=== PATIENT | female | born 1985 | race Caucasian/White ===

== ENCOUNTER 2019-01-10 06:13 | Day surgery (SDC) | payer BC ==
--- NOTE | 2019-01-05 16:23 | HP ---
PREOPERATIVE HISTORY AND PHYSICAL: DATE OF ADMISSION/SURGERY: 01/10/[address] [facility] DATE OF OFFICE VISIT: 01/04/19 ATTENDING SURGEON: Dr. Kailey Calixto.* (DICTATED BY DAVID LANGSTON) PROCEDURE: Right shoulder arthroscopic decompression, debridement, excision of distal clavicle, and possible subpectoral biceps tenodesis. CHIEF COMPLAINT: Right shoulder pain. HISTORY OF PRESENT ILLNESS: Anna is a 33-year-old female, who presents to the clinic for right shoulder pain due to AC joint arthritis and biceps tendinitis. She has failed conservative measures and therefore agreed to undergo a right shoulder arthroscopic decompression, debridement, excision of distal clavicle, and possible subpectoral biceps tenodesis with Dr. Calixto on . PAST MEDICAL HISTORY: Anxiety. PAST SURGICAL HISTORY: Denies prior surgeries. MEDICATIONS: Lorazepam 2 mg/mL, 0.5 every 6 hours as needed. ALLERGIES: BACTRIM. FAMILY HISTORY: Denies pertinent family history. Denies family history of DVT or PE. SOCIAL HISTORY: She lives with her spouse. She denies smoking. She reports occasional alcohol consumption. She is right-hand dominant. REVIEW OF SYSTEMS: A 14-point review of systems was reviewed with the patient. Positive for current complaint, otherwise negative. Denies fever, chills, chest pain, shortness of breath, history of bleeding disorder, history of DVT or PE. PHYSICAL EXAMINATION GENERAL: A 33-year-old, well-developed, well-nourished female, in no acute distress. VITAL SIGNS: Height 65, weight 161, blood pressure 122/72, respiratory rate 18 , BMI 26.8. HEENT: Normocephalic, atraumatic. PERRLA. Throat clear. NECK: Supple. PULMONARY: Lungs are clear to auscultation bilaterally. No wheezing, rhonchi, or rales. CARDIO: Regular rate and rhythm. S1, S2. No murmurs, gallops, or rubs. No edema. ABDOMEN: Positive bowel sounds. Soft, nontender. NEURO: Alert and oriented x3. Cranial nerves grossly intact. MUSCULOSKELETAL: Right upper extremity: Skin is intact. Tenderness over the AC joint. Mildly tender over the bicipital groove. Forward flexion and abduction to 175, external rotation to 80, internal rotation to T8. +5/5 strength to rotator cuff testing with pain. Pain with impingement testing and Speed's and Guilford's. Positive cross-body adduction. +2 radial pulse. Sensation intact to light touch distally. DIAGNOSTIC STUDIES: MRI of the right shoulder revealed fluid in the bicipital groove, superior labral tearing, AC joint arthritis and impingement. IMPRESSION: Right shoulder acromioclavicular joint arthritis, impingement, and biceps tendinitis. PLAN: The patient is scheduled to undergo a right shoulder arthroscopic decompression, debridement, excision of distal clavicle, and possible subpectoral biceps tenodesis with Dr. Calixto on 01/10/19. She will follow up 10 to 14 days postop for followup and suture removal. Toradol and Tylenol will be used for postop pain management. The patient would like to avoid narcotics if possible. DAVID LANGSTON [id number]/[facility] #: [id number] RICK
[~2019-01-10 06:13] MED LIST: Buffered Lidocaine 1% SYRIN* 1 ML/SYRINGE INTRADERM ONE; Dexamethasone IV* 4 MG/ML 1 ML (4 MG) IV SLOW PU ONE; Lactated Ringers 1000 ML Bag* 1,000 ML IV SCH
[2019-01-10] MEDS ORDERED: Dexamethasone IV* 4 MG/ML 1 ML (4 MG) ONE (06:25)
[2019-01-10] MEDS ORDERED: ceFAZolin 2 GM in NS PREMIX(*) 2 GM/100 ML BAG IVPB ONE (06:26)
[2019-01-10] MEDS ORDERED: Bupivacaine 0.25% SDV* 30 ML ONE (07:01)
[2019-01-10] MEDS ORDERED: Propofol* 10 MG/ML 20 ML BTL ONE (07:22)
[2019-01-10] MEDS ORDERED: Midazolam* 1 MG/ML 5 ML VIAL (5 MG) ONE (07:22)
[2019-01-10] MEDS ORDERED: fentaNYL* 50 MCG/ML 2 ML VIAL (100 MCG VIAL) ONE (07:22)
[2019-01-10] MEDS ORDERED: ROPIVACAINE 5 MG/ML 30 ML BTL (0.5%) ONE (07:24)
[2019-01-10] MEDS ORDERED: Lidocaine 1% MPF ** 5 ML VIAL ONE (07:25)
[2019-01-10] MEDS ORDERED: fentaNYL* 50 MCG/ML 2 ML VIAL (100 MCG VIAL) IV PRN (07:31)
[2019-01-10] MEDS ORDERED: DiMENhydriNATE IV* 50 MG/ML VIAL IV PUSH PRN (07:31)
[2019-01-10] MEDS ORDERED: Ketorolac INJ* 30 MG/ML 1 ML VIAL IV PRN (07:31)
[2019-01-10] MEDS ORDERED: Naloxone* 0.4 MG/ML 1 ML VIAL IV PRN (07:31)
[2019-01-10] MEDS ORDERED: Acetaminophen TAB* 325 MG PO PRN (07:31)
[2019-01-10] MEDS ORDERED: oxyCODONE/Acetamin 5/325 MG* TAB PO PRN (07:31)
[2019-01-10] MEDS ORDERED: HYDROmorphone INJ1* 1 MG/ML SYRINGE IV PRN (07:31)
[2019-01-10 10:34] VITALS: BP 117/81
--- NOTE | 2019-01-10 12:27 | OP ---
CC: PCP, Darcy Guerra NP * DATE OF OPERATION: 01/10/19 [facility] DATE OF : 81 SURGEON: Kailey Calixto MD. COMPANY DOCTOR: DAVID Bunch. The logging assistant was needed for the entirety of the case to help with positioning, retraction, and were utilized throughout all portions of the case. ANESTHESIOLOGIST: Dr. Chan. ANESTHESIA: General, interscalene block. PRE-OP DIAGNOSIS: Right shoulder AC joint arthritis, impingement and a SLAP tear. POST-OP DIAGNOSIS: 1. Right shoulder AC joint arthritis. 2. High grade partial thickness tear of the supraspinatus tendon. 3. Type 2 SLAP and impingement. OPERATIVE PROCEDURE: Right shoulder arthroscopy with: 1. Extensive glenohumeral debridement. 2. Subacromial decompression with acromioplasty. 3. Distal clavicle excision. 4. Rotator cuff repair using Regeneten patch. 5. Open biceps tenodesis. COMPLICATIONS: None. IMPLANTS: One medium sized Regeneten patch and one 2.8 mm Q-Fix anchor. DISPOSITION: Stable. INDICATIONS: Anna Serna is a 33-year-old female who presented with persistent right shoulder pain beginning in May. She had a lot of AC joint pain as well as impingement. She had a SLAP type 2 tear as well as some tendinosis. She has failed conservative management. She has elected to receive surgical treatment. Risks and benefits of the surgery were discussed at length included, but not limited to bleeding; infection; damage to nerves, vessels, and surrounding structures; wound nonhealing; persistent pain; need for further surgery; scaring; stiffness; incomplete relief of symptoms; and risks of anesthesia and risk of DVT. She has elected to proceed. DESCRIPTION OF PROCEDURE: The patient was greeted in the preoperative area by the attending surgeon. The correct extremity was marked and the consent was confirmed. Patient underwent interscalene nerve block by the anesthesiologist after which she brought back to the operative suite. She was placed in a supine position on the operating table and then underwent general anesthesia with endotracheal intubation. She was then placed in the left lateral decubitus position with an axillary roll. All bony prominences were padded. She was secured with a pegboard. The right arm was draped unsterile with 10 pounds of traction. The right shoulder was then prepped and draped in usual sterile fashion beginning with chlorhexidine soap, scrub, and alcohol wipe and a final prep with ChloraPrep. After appropriate surgical pause indicating site, side, procedure, and administration of antibiotics, the standard postero-lateral portal was made sharply with an 11-blade. The scope was introduced into the joint. The joint was examined. The glenohumeral joint had grade 0 to 1 changes. The inferior recess was intact. There was a high grade partial thickness tearing with unstable fraying of the supraspinatus. The superior labrum had type 2 tear with synovitis and damage to the rene of the biceps. The subscap was intact. The anterior portal was made in an outside-in fashion. The anterior, posterior, superior labrum were debrided back using the shaver. The biceps was tenotomized for later tenodesis. The undersurface of the supraspinatus was debrided back. The subscap was visualized and found to be intact. There was synovitis that was present as well. Once the intraarticular portion was completed, attention was directed to the subacromial space. With the scope was positioned in the subacromial space. The lateral portal was made in an outside-in fashion. The shaver was used to debride back the abundant bursa that was present. There was a downward sloping of the acromion. This was skeletonized using the electrocautery device. A 4-0 oval malissa was used to do an acromioplasty. Once this was completed, attention was directed to the AC joint. The AC joint was visualized and the malissa was brought into the anterior portal and the distal 8 mm was debrided using the malissa with care to prevent damage to the CC ligament. Final images were obtained. Hemostasis was obtained at all times with electrocautery device. The shoulder was lavaged and removed of any loose debris. At this point, attention was directed to the cuff. The cuff was found to be intact on the bursal side with no evidence of tearing. The decision was made to treat the partial thickness tear with the Regeneten patch which is a high grade partial thickness tear with greater than 50% of the tendon involved. The Regeneten patch was brought into the field and placed under arthroscopic and direct visualization. Once this was appropriately positioned through separate stab incisions, a cannula was placed and the tendon andres were then placed to allow the patch to secure to the cuff. Once this was done, the PEEK andres were then used to secure the graft to the bone laterally. This allowed for the patch to be well secured. The shoulder was taken through a gentle motion, it was found to be intact. Final images were obtained. The wound was copiously irrigated and attention was directed to the biceps. With the bed air-planed to the side, the anterior aspect of the shoulder was prepped again using ChloraPrep. A 15-blade was used to make an incision in line with the biceps tendon. The soft tissue was carefully used to dissect and expose the pec fascia. Once this was identified, manual resection was done bluntly. The [place] was used to elevate the pec and the bicipital groove was palpated. The biceps was brought through the wound. There was abundant synovitis and erythema involved along the tendon. The groove was then prepared in the usual fashion with electrocautery device, red ball rasp and osteotome. The Q-Fix was then drilled unicortically and then deployed with excellent purchase. Sutures were then passed through the biceps proximally once and once through the musculotendinous junction in a Bryce-Joseph type configuration. The excess stump was excised and biceps was shuttled back to the wound and secured. Finally, the wound was copiously irrigated with sterile saline. Sterile dressings were applied. The wound was irrigated with sterile saline. Portals were closed with 3-0 nylon. Skin was closed in layers with 3-0 Monocryl. Sterile dressing were applied, a Cryo/Cuff and UltraSling were applied. She was awoken from anesthesia and transferred to the PACU in stable condition. POSTOPERATIVE PLAN: She will be nonweightbearing. She will be in a sling for approximately 4 weeks. She will be discharged on pain medication. DVT prophylaxis was considered, but deferred due to no previous personal or family history. I will see the patient back in 10 to 14 days. She will start therapy next week. [id number]/[facility] #: [id number] MTDD
== END 2019-01-10 11:10 | disposition home or self-care (01) ==
LOC: OREAST 06:13
PROVIDERS: ATTEND Orthopaedic Surgery
DX: M19.011 Primary osteoarthritis, right shoulder (principal); M75.111 Incomplete rotator cuff tear or rupture of right shoulder, not specified as traumatic; M75.41 Impingement syndrome of right shoulder; M24.811 Other specific joint derangements of right shoulder, not elsewhere classified; F41.9 Anxiety disorder, unspecified; G89.18 Other acute postprocedural pain
CPT/HCPCS: 81025; C1713; C1776; J0690; J1100; J2250; J2704; J2795; J3010; J3490